=== PATIENT | male | born 1960 | race Caucasian/White ===

== ENCOUNTER 2019-04-19 13:26 | Outpatient (CLI) | payer OTHER ==
[~2019-04-19] VITALS: Ht 162.6 cm; Wt 72.1 kg
--- NOTE | 2019-04-19 18:30 | Consultation ---
DATE OF CONSULTATION: 04/19/2019 CONSULTING PHYSICIAN: Misael Vu M.D. CHIEF COMPLAINT: Weight loss, screening colonoscopy evaluation. HISTORY OF PRESENT ILLNESS: This is a 58-year-old male who apparently has been followed by another GI doctor and was given a trial of Xifaxan for SIBO, simethicone for gas and bloating, Creon for indigestion, and Nexium for acid reflux disease. He was referred to us for evaluation of abdominal pain and weight loss. PAST MEDICAL HISTORY: 1. Anxiety. 2. GERD. PAST SURGICAL HISTORY: He had ear surgery and also when he was a child and he was born surgery. MEDICATIONS: Please see medication reconciliation list. FAMILY HISTORY: No family history of GI malignancies. SOCIAL HISTORY: The patient denies any tobacco, alcohol, or IV drug abuse. REVIEW OF SYSTEMS: A 10-point review of systems was performed and pertinent positives in the HPI. PHYSICAL EXAMINATION: GENERAL: Mildly anxious male, in no acute distress. HEENT: Normocephalic and atraumatic. Sclerae anicteric. NECK: Supple. No evidence of obvious lymphadenopathy. CARDIOVASCULAR: Regular rate and rhythm. Plus S1, S2. LUNGS: Clear to auscultation bilaterally. ABDOMEN: Positive bowel sounds. Soft and nontender. No rebound. No guarding. No peritoneal sign. EXTREMITIES: No cyanosis. No clubbing. No edema. ASSESSMENT AND PLAN: This is a 58-year-old male with 20 pounds of weight loss in over a year, unwanted weight loss, need for screening colonoscopy, and chronic GERD. I explained to the patient that he needs to have an endoscopy and colonoscopy to start the workup. He is over age of 50 and needs screening anyway and given the weight loss, he needs endoscopy too. If that is negative, he needs to come back to the office for further workup. The patient was given instruction for colonoscopy. Risks and benefits of the procedure were explained to him. We are going to go ahead and schedule him pending authorization. Misael Vu M.D. DR: CHAPITO JOB#: [id number] CC:
[2019-04-24] MEDS ORDERED: OMEPRAZOLE20 M2 ORAL (14:37)
[2019-04-24] MEDS ORDERED: SIMETHICONE125 M1 PO (14:37)
[2019-04-24] MEDS ORDERED: FLOMAX0.4 MG ORAL (14:37)
== END 2019-04-19 15:26 | disposition home or self-care (01) ==
LOC: PAN 13:26
DX: R63.4 Abnormal weight loss (principal); F41.9 Anxiety disorder, unspecified; K21.9 Gastro-esophageal reflux disease without esophagitis
CPT/HCPCS: G0463